=== PATIENT | male | born 1970 | race American Indian/Alaskan Native ===

== ENCOUNTER 2016-06-28 01:13 | Inpatient (IN) | payer MEDICARE ==
[2016-06-28 01:30] LABS: Basophils % (Auto) 0.4 % (0.0-1.8); Eosinophils % (Auto) 2.1 % (0.0-4.3); Hematocrit 39.1 % (35.5-45.6); Mean Corpuscular HGB Conc 33 % (32-34); Mean Corpuscular Hemoglobin 28 pg (28-32); Mean Corpuscular Volume 85 fl (84-94); Platelet Count 190 K/mm3 (140-440); Red Blood Count 4.59 M/mm3 (3.65-5.03); Red Cell Distribution Width 13.9 % (13.2-15.2); White Blood Count 8.6 K/mm3 (4.5-11.0)
--- NOTE | 2016-06-28 01:31 | Emergency Department Report ---
ED Neuro Deficit HPI - General Chief Complaint: Neuro Symptoms/Deficit Stated Complaint: CVA Time Seen by Provider: 06/28/16 01:23 Source: patient, family, EMS Mode of arrival: Stretcher Limitations: No Limitations - History of Present Illness Initial Comments: EMS called to the scene at 00 26 for patient concerning for possible CVA. There was a woman insisted on EMS coming. Patient states he was just hanging out with his daughter. She noted that he suddenly had leftward gaze and appeared to have some weakness on his left arm and leg. This also report that the patient appears to be weak on his left arm and leg. Patient does endorse history of prior TIAs. States today was a normal day. He denies any trauma. He denies any recent surgery. He denies being on any blood thinners. Onset/Timin -: Sudden, hour(s) Location: left arm, left leg, ataxia Presenting Symptoms: Present: Weak/Paralyzed One Side History of same: Yes Place: home Severity: moderate Quality: weak Improves With: none Worsens With: none Context: sudden onset Associated Symptoms: denies: confusion, chest pain, headaches, nausea/vomiting, vertigo Treatments Prior to Arrival: oxygen - Related Data Home Medications: Home Medications Medication Instructions Recorded Confirmed Last Taken Atorvastatin (Nf) [Lipitor (Nf)] 20 mg PO QDAY 08/22/14 08/22/14 08/22/14 09:00 Lisinopril [Zestril] 20 mg PO BID 08/22/14 08/22/14 08/22/14 09:00 Potassium Citrate [Potassium 10 meq PO DAILY 08/22/14 08/22/14 08/22/14 09:00 Citrate ER] glipiZIDE [Glucotrol] 10 mg PO BID 08/22/14 08/22/14 08/22/14 09:00 levETIRAcetam [levETIRAcetam ER] 500 mg PO BID 08/22/14 08/22/14 08/22/14 09:00 Previous Rx's Medication Instructions Recorded Last Taken Type Losartan [Cozaar] 100 mg PO QDAY #30 tablet 08/27/14 Unknown Rx Metoprolol [Lopressor TAB] 100 mg PO BID #60 tablet 08/27/14 Unknown Rx Simvastatin [Zocor TAB] 20 mg PO QHS #30 tablet 08/27/14 Unknown Rx Spironolactone 25 mg PO DAILY #30 tablet 08/27/14 Unknown Rx cloNIDine [Catapres] 0.2 mg PO BID PRN #60 tablet 08/27/14 Unknown Rx glipiZIDE [Glucotrol] 5 mg PO BIDDIAB #30 tablet 08/27/14 Unknown Rx hydrALAZINE [Apresoline TAB] 50 mg PO Q8HR #90 tablet 08/27/14 Unknown Rx levETIRAcetam [Keppra TAB] 1,500 mg PO BID #60 tablet 08/27/14 Unknown Rx Allergies/Adverse Reactions: Allergies Allergy/AdvReac Type Severity Reaction Status Date / Time No Known Allergies Allergy Verified 05/26/14 10:20 ED Review of Systems ROS: Stated complaint: CVA Other details as noted in HPI Constitutional: denies: chills, fever Eyes: denies: eye pain, eye discharge, vision change ENT: denies: ear pain, throat pain Respiratory: denies: cough, shortness of breath, wheezing Cardiovascular: denies: chest pain, palpitations Endocrine: no symptoms reported Gastrointestinal: denies: abdominal pain, nausea, diarrhea Genitourinary: denies: urgency, dysuria Musculoskeletal: denies: back pain, joint swelling, arthralgia Skin: denies: rash, lesions Neurological: weakness, abnormal gait. denies: headache, paresthesias Psychiatric: denies: anxiety, depression Hematological/Lymphatic: denies: easy bleeding, easy bruising ED Past Medical Hx - Past Medical History Hx Hypertension: Yes Hx CVA: Yes (old left side weakness.) Hx Congestive Heart Failure: No Hx Diabetes: Yes Hx Renal Disease: Yes Hx Seizures: Yes (Since Jun 2012) Hx Asthma: No Hx COPD: No - Social History Smoking Status: Never Smoker Substance Use Type: None - Medications Home Medications: Home Medications Medication Instructions Recorded Confirmed Last Taken Type Atorvastatin (Nf) [Lipitor (Nf)] 20 mg PO QDAY 08/22/14 08/22/14 08/22/14 09:00 History Lisinopril [Zestril] 20 mg PO BID 08/22/14 08/22/14 08/22/14 09:00 History Potassium Citrate [Potassium 10 meq PO DAILY 08/22/14 08/22/14 08/22/14 09:00 History Citrate ER] glipiZIDE [Glucotrol] 10 mg PO BID 08/22/14 08/22/14 08/22/14 09:00 History levETIRAcetam [levETIRAcetam ER] 500 mg PO BID 08/22/14 08/22/14 08/22/14 09:00 History Losartan [Cozaar] 100 mg PO QDAY #30 tablet 08/27/14 Unknown Rx Metoprolol [Lopressor TAB] 100 mg PO BID #60 tablet 08/27/14 Unknown Rx Simvastatin [Zocor TAB] 20 mg PO QHS #30 tablet 08/27/14 Unknown Rx Spironolactone 25 mg PO DAILY #30 tablet 08/27/14 Unknown Rx cloNIDine [Catapres] 0.2 mg PO BID PRN #60 tablet 08/27/14 Unknown Rx glipiZIDE [Glucotrol] 5 mg PO BIDDIAB #30 tablet 08/27/14 Unknown Rx hydrALAZINE [Apresoline TAB] 50 mg PO Q8HR #90 tablet 08/27/14 Unknown Rx levETIRAcetam [Keppra TAB] 1,500 mg PO BID #60 tablet 08/27/14 Unknown Rx ED Neuro Physical Exam - General Limitations: Other (confused) General appearance: alert, in distress Suspected Stroke: Yes - Head Head exam: Present: atraumatic, normocephalic - Eye Eye exam: Present: normal appearance, PERRL, EOMI - ENT ENT exam: Present: normal orophraynx, mucous membranes moist - Neck Neck exam: Present: normal inspection, other (Unable to turn to the R). Absent : meningismus, lymphadenopathy - Respiratory Respiratory exam: Present: normal lung sounds bilaterally. Absent: respiratory distress, wheezes - Cardiovascular Cardiovascular Exam: Present: regular rate, normal rhythm. Absent: systolic murmur, diastolic murmur, rubs, gallop - GI/Abdominal GI/Abdominal exam: Present: soft, normal bowel sounds. Absent: distended, tenderness - Rectal Rectal exam: Present: deferred - Extremities Exam Extremities exam: Present: other (no sensation or movement in L leg or arm. Nml sensation and strength in R) - Back Exam Back exam: Present: normal inspection. Absent: muscle spasm, paraspinal tenderness, vertebral tenderness - Neurological Exam Neurological exam: Present: alert, other (disoriented X2. ) - NIHSS Assessment Interval: Baseline 1a. Level of Consciousness: alert 1b. LOC Questions: answers no questions correctly 1c. LOC Commands: performs 1 task correctly 2. Best Gaze: partial gaze palsy 3. Visual: no visual loss 4. Facial Palsy: normal symmetrical movement 5b. Motor Arm Right: no drift 5a. Motor Arm Left: no movement 6a. Motor Leg Left: no drift 6b. Motor Leg Right: no movement 7. Limb Ataxia: present 2 limbs 8. Sensory: severe/total sensory loss 9. Best Language: mild/moderate aphasia 10. Dysarthria: normal 11. Extinction/Inattention: visual/tactile inattention Total Score: 18 Stroke Severity: Moderate to Severe Stroke - Psychiatric Psychiatric exam: Present: flat affect, other (blunted in responses. Very short. ) - Skin Skin exam: Present: warm, dry, intact, normal color. Absent: rash ED Course Vital Signs 06/28/16 06/28/16 06/28/16 01:35 01:37 01:41 Pulse Rate 117 H 110 H 115 H Respiratory 21 19 21 Rate Blood Pressure 240/133 240/133 Blood Pressure [Right] O2 Sat by Pulse 83 L 88 100 Oximetry 06/28/16 06/28/16 06/28/16 01:44 01:45 01:51 Pulse Rate 129 H 129 H Respiratory 22 26 H Rate Blood Pressure 240/133 263/152 Blood Pressure 240/133 [Right] O2 Sat by Pulse 96 98 Oximetry 06/28/16 06/28/16 06/28/16 01:55 02:00 02:05 Pulse Rate 138 H 133 H 111 H Respiratory 25 H 18 24 Rate Blood Pressure 269/141 221/121 187/114 Blood Pressure [Right] O2 Sat by Pulse 97 96 95 Oximetry 06/28/16 06/28/16 06/28/16 02:09 02:11 02:15 Pulse Rate 103 H 103 H 105 H Respiratory 17 20 19 Rate Blood Pressure 187/114 175/105 183/108 Blood Pressure [Right] O2 Sat by Pulse 96 94 94 Oximetry 06/28/16 06/28/16 06/28/16 02:16 02:30 02:33 Pulse Rate 110 H 116 H 104 H Respiratory 21 20 16 Rate Blood Pressure 183/108 189/119 172/126 Blood Pressure [Right] O2 Sat by Pulse 94 94 95 Oximetry 06/28/16 06/28/16 06/28/16 02:45 03:00 03:15 Pulse Rate 102 H 108 H 105 H Respiratory 17 20 22 Rate Blood Pressure 174/98 183/109 182/104 Blood Pressure [Right] O2 Sat by Pulse 97 95 95 Oximetry 06/28/16 03:30 Pulse Rate 102 H Respiratory 20 Rate Blood Pressure 163/101 Blood Pressure [Right] O2 Sat by Pulse 95 Oximetry - Reevaluation(s) Reevaluation #1: 06/28/16 02:01 ECG at 01 36 with sinus tachycardia at 108 bpm left axis. Does have normal LA and QRS. Nonspecific ST-T wave abnormalities are noted. Reevaluation #2: 06/28/16 02:02 Patient's blood pressure put him out of the window for TPA at this moment. In further conversation with the daughter, she last saw him well at 2230. At that point she heard him again about 12:15 when he got up to use the bathroom. She noted that he was having some difficulty being steady on his feet and misstook being in the family room and Peeing on the floor the family rather than peeing in the bathroom. BP currently 250/140. Patient started on Cardene. This does not seem to be touching the blood pressure. We will trial on nitroprusside. Reevaluation #3: 06/28/16 05:12 I did speak with Dr. Arroyo regarding this patient. Initially the plan was to give TPA. However when Dr. Arroyo saw the patient on telemetry radiology who felt it was unusual that the patient had a deviation of his gaze on the same side as the deficit. Patient was also noted to have some occasional twitching in his face as well as his left leg. He instructed us to give Ativan and this had a dramatic results. The patient suddenly was much more appropriate and had resolution of his deficits on the left side. This confirmed Dr. Arroyo suspicion that the patient was in status epilepticus. I abandoned any thoughts of TPA at this point unfortunately it had already had been mixed. With Dr. Arroyo's suggestion, the patient was loaded on fosphenytoin. I also gave Keppra. He is quite sleepy after this now. He is however arousable and does answer questions and is moving all extremities. His labs are noted. I did speak with Dr. Vergara regarding admission of this patient here. She was comfortable with him staying here. He will likely need EEG. As outpatient he will need neurology follow-up as well. His last seizure was one year ago. I suspect he has a complex partial seizure disorder due to his prior CVAs. There was no report of trauma tonight. I'm not able to identify any specific stressors that would've caused problems tonight either. In regards to his blood pressure, I ultimately held off on the nitroprusside as he began to respond to the Cardene drip. Also given labetalol 20 mg IV. Blood pressures still has a diastolic that is somewhat elevated 110. But his systolic is right around 170. 06/28/16 05:16 - Lab Data Result diagrams: 06/28/16 01:20 06/28/16 01:20 Lab Results 06/28/16 06/28/16 06/28/16 Range/Units 01:16 01:20 01:20 WBC 8.6 (4.5-11.0) K/mm3 RBC 4.59 (3.65-5.03) M/mm3 Hgb 13.0 (11.8-15.2) gm/dl Hct 39.1 (35.5-45.6) % MCV 85 (84-94) fl MCH 28 (28-32) pg MCHC 33 (32-34) % RDW 13.9 (13.2-15.2) % Plt Count 190 (140-440) K/mm3 Lymph % (Auto) 29.4 (13.4-35.0) % [place] % (Auto) 5.1 (0.0-7.3) % Eos % (Auto) 2.1 (0.0-4.3) % Baso % (Auto) 0.4 (0.0-1.8) % Lymph # 2.5 (1.2-5.4) K/mm3 [place] # 0.4 (0.0-0.8) K/mm3 Eos # 0.2 (0.0-0.4) K/mm3 Baso # 0.0 (0.0-0.1) K/mm3 Seg Neutrophils % 63.0 (40.0-70.0) % Seg Neutrophils # 5.4 (1.8-7.7) K/mm3 PT 12.7 (12.2-14.9) Sec. INR 0.96 (0.87-1.13) APTT 30.8 (24.2-36.6) Sec. Thrombin Time 16.0 (15.1-19.6) Sec. Sodium (137-145) mmol/L Potassium (3.6-5.0) mmol/L Chloride (98-107) mmol/L Carbon Dioxide (22-30) mmol/L Anion Gap mmol/L BUN (9-20) mg/dL Creatinine (0.8-1.5) mg/dL Estimated GFR ml/min BUN/Creatinine Ratio % Glucose (75-100) mg/dL POC Glucose 144 H (70-105) Calcium (8.4-10.2) mg/dL Troponin T (0.00-0.029) ng/mL 06/28/16 Range/Units 01:20 WBC (4.5-11.0) K/mm3 RBC (3.65-5.03) M/mm3 Hgb (11.8-15.2) gm/dl Hct (35.5-45.6) % MCV (84-94) fl MCH (28-32) pg MCHC (32-34) % RDW (13.2-15.2) % Plt Count (140-440) K/mm3 Lymph % (Auto) (13.4-35.0) % [place] % (Auto) (0.0-7.3) % Eos % (Auto) (0.0-4.3) % Baso % (Auto) (0.0-1.8) % Lymph # (1.2-5.4) K/mm3 [place] # (0.0-0.8) K/mm3 Eos # (0.0-0.4) K/mm3 Baso # (0.0-0.1) K/mm3 Seg Neutrophils % (40.0-70.0) % Seg Neutrophils # (1.8-7.7) K/mm3 PT (12.2-14.9) Sec. INR (0.87-1.13) APTT (24.2-36.6) Sec. Thrombin Time (15.1-19.6) Sec. Sodium 138 (137-145) mmol/L Potassium 3.5 L (3.6-5.0) mmol/L Chloride 96.9 L (98-107) mmol/L Carbon Dioxide 31 H (22-30) mmol/L Anion Gap 14 mmol/L BUN 13 (9-20) mg/dL Creatinine 0.8 (0.8-1.5) mg/dL Estimated GFR > 60 ml/min BUN/Creatinine Ratio 16.25 % Glucose 152 H (75-100) mg/dL POC Glucose (70-105) Calcium 9.1 (8.4-10.2) mg/dL Troponin T < 0.010 (0.00-0.029) ng/mL - Radiology Data Radiology results: report reviewed, image reviewed Per radiologist no acute pathology. Critical Care Time: Yes Critical care time in (mins) excluding proc time.: 50 Critical care attestation.: If time is entered above; I have spent that time in minutes in the direct care of this critically ill patient, excluding procedure time. ED Disposition Clinical Impression: Malignant hypertension Seizure disorder, complex partial Qualifiers: Epilepsy type: partial symptomatic Intractability: not intractable Status epilepticus: with status epilepticus Qualified Code(s): G40.201 - Localization- related (focal) (partial) symptomatic epilepsy and epileptic syndromes with complex partial seizures, not intractable, with status epilepticus Disposition: OP ADMITTED IP TO THIS HOSP Is pt being admited?: Yes Does the pt Need Aspirin: No Condition: Stable Instructions: Hypertension (ED) Referrals: PRIMARY CARE, [Primary Care Provider] - 3-5 Days Time of Disposition: 04:17 - Assessment Assessment Interval: Baseline - Level of Consciousness 1a. Level of Consciousness: alert - LOC Questions 1b. LOC Questions: answers no questions correctly - LOC Command 1c. LOC Commands: performs 1 task correctly - Best Gaze 2. Best Gaze: forced deviation - Visual 3. Visual: partial hemianopia - Facial Palsy 4. Facial Palsy: normal symmetrical movement - Motor Arm 5b. Motor Arm Right: no drift 5a. Motor Arm Left: no movement - Motor Leg 6a. Motor Leg Left: no drift 6b. Motor Leg Right: no movement - Limb Ataxia 7. Limb Ataxia: present 2 limbs - Sensory 8. Sensory: severe/total sensory loss - Best Language 9. Best Language: mild/moderate aphasia - Dysarthria 10. Dysarthria: normal - Extinction and Inattention 11. Extinction/Inattention: no abnormality - Scoring Total Score: 19 Stroke Severity: Moderate to Severe Stroke
[2016-06-28 01:35] LABS: INR 0.96 (0.87-1.13)
[2016-06-28 01:36] LABS: Partial Thromboplastin Time 30.8 Sec. (24.2-36.6)
[2016-06-28] MEDS: CARDENE DRIP 40 MG/200 ML 40 MG/200 ML BAG IV SCH ×2 (01:37→10:02)
--- NOTE | 2016-06-28 01:42 | Cat Scan Report ---
FINAL REPORT PROCEDURE: CT HEAD/BRAIN WO CON TECHNIQUE: Computerized tomography of the head was performed without contrast material. HISTORY: neuro deficits \T\lt; 6hrs or sx present upon awakening COMPARISON: 08/22/2014 FINDINGS: The osseous cranium appears intact. Minimal opacification of the ethmoid and posterior left maxillary sinuses is noted. The mastoid air cells are clear. There is no evident acute intracranial hemorrhage or mass effect. No masses identified. No evidence of an acute infarction. Encephalomalacia is seen in the right parietal lobe with old infarction involving right posterior frontal, upper temporal and lower parietal lobes. There remains periventricular small vessel ischemic changes as well as schema changes in the caudate nuclei and bilateral basal ganglia. Mild atrophy is noted. No hydrocephalus is seen. The basilar cisterns are maintained. The cerebellum has a normal appearance. Moderate atherosclerosis of the carotid arteries is noted. IMPRESSION: There is no evidence of an acute intracranial process. The findings are essentially unchanged. Evidence of encephalomalacia and old infarction involving the right posterior frontal, temporal and parietal lobes is noted. There remains periventricular deep white matter changes will is old the lacunar infarctions and small vessel ischemic changes within the caudate nuclei in the bilateral basal ganglia.
[2016-06-28 01:47] LABS: Anion Gap 14 mmol/L; BUN/Creatinine Ratio 16.25; Blood Urea Nitrogen 13 mg/dL (9-20); Calcium 9.1 mg/dL (8.4-10.2); Carbon Dioxide 31 mmol/L (22-30); Chloride 96.9 mmol/L (98-107); Glucose 152 mg/dL (75-100); Potassium 3.5 mmol/L (3.6-5.0); Sodium 138 mmol/L (137-145)
[2016-06-28] MEDS ORDERED: CARDENE DRIP 40 MG/200 ML 200 ML IV SCH (01:47)
[2016-06-28] MEDS ORDERED: NIPRIDE 50 MG in D5W 248 ML IV SCH (02:00)
[2016-06-28] MEDS ORDERED: NACL 0.9% 500 ML 500 ML ONE (02:05)
[2016-06-28] MEDS ORDERED: NORMODYNE IV ONE ×2 (02:05→02:06)
[2016-06-28] MEDS ORDERED: ATIVAN ONE (02:29)
[2016-06-28] MEDS ORDERED: ATIVAN IV ONE ×2 (02:35→02:37)
[2016-06-28] MEDS ORDERED: KEPPRA 1,000 MG/NS 0.75% 100ML 1,000 MG/100 ML BAG IV ONE (02:37)
[2016-06-28] MEDS ORDERED: CEREBYX IV ONE ×2 (02:37→03:00)
[2016-06-28] MEDS ORDERED: ACTIVASE ONE (02:47)
[2016-06-28] MEDS ORDERED: [UNRECOGNIZED DRUG - OTHER] IV ONE (03:00)
[2016-06-28] MEDS ORDERED: NACL IV ONE (03:00)
--- NOTE | 2016-06-28 04:40 | Admit Criteria Form ---
Admission Criteria Documentation: SEIZURE Clinical Indications for Admission to Inpatient Care (Place 'X' for any and all applicable criteria): Admission is indicated for seizure and ANY ONE of the following(1)(2)(3)(4)(5): [X ]I. Inpatient admission required rather than observation care (Also use Seizure: Observation Care Criteria as appropriate) because of ANY ONE of the following: [ ]a) Altered mental status that is severe or persistent [ ]b) New focal neurologic deficit that is severe or persistent [ ]c) Metabolic disorder (eg, hypoglycemia, hyponatremia) that is severe or persistent [ ]d) Recurrent seizure [ ]e) Outpatient antiseizure regimen cannot be established (eg , patient cannot tolerate medication, initiation requires inpatient care) [ ]f) Need for ongoing intravenous infusion of antiseizure medication [ ]g) Cardiac arrhythmias of immediate concern [ ]h) Cerebral bleeding, hydrocephalus, or vasospasm monitoring (14) [ ]i) Increased intracranial pressure or cerebral edema monitoring (15) [X ]j) Other treatment or monitoring requiring inpatient admission [X ]II. Status epilepticus [A] or repetitive seizures not controlled with emergent treatment (6)(8) [ ]III. Brain disorder (eg, tumor, edema, and hydrocephalus) that requiring monitoring or intervention available only at inpatient level of care. [ ]IV. Brain insult (eg, severe trauma, stroke, drug toxicity, or withdrawal) that requires monitoring or intervention available only at inpatient level of care (10)(11) Extended stay beyond goal length of stay may be needed for (22) [ ]a) Complications of status epilepticus [ ]b) Refractory status epilepticus [ ]c) Etiology-specific therapy for conditions such as [employer]ED[employer] OPER[employer] infection, head injury,eclampsia, severe metabolic abnormalities, and brain tumor [ ]d) Residual neurologic damage, [ ]e) Initiation of significant change to anticonvulsant treatment [ ]f) Older patients (65 years or older) [ ]g) Patient requiring intubation (eg, to protect airway) The original [facility] content created by [facility] [employer] has been revised. The portions of the content which have been revised are identified through the use of italic text or in bold, and [facility] [employer] has neither reviewed nor approved the modified material. All other unmodified content is copyright [facility] [employer]. Please see references footnoted in the original [facility] edition 2016 Admission Criteria Met: Yes
[2016-06-28] MEDS ORDERED: ATIVAN IV PRN (05:07)
--- NOTE | 2016-06-28 05:14 | History and Physical Report ---
History of Present Illness Date of examination: 06/28/16 History of present illness: 46-year-old man with a history of seizure was brought to the emergency room for evaluation of stroke. He was noted to have left side weakness and left gaze preference. Patient was evaluated by neurology who decided to give the patient IV Ativan for possible status epilepticus, patient's neurological improved dramatically for the emergency room physician, however he is now sedated. Review of system is now unobtainable . PAST SURGICAL HISTORY: Unknown SOCIAL HISTORY: Unknown FAMILY HISTORY: Unknown Medications and Allergies Allergies Allergy/AdvReac Type Severity Reaction Status Date / Time No Known Allergies Allergy Verified 05/26/14 10:20 Home Medications Medication Instructions Recorded Confirmed Last Taken Type Atorvastatin (Nf) [Lipitor (Nf)] 20 mg PO QDAY 08/22/14 08/22/14 08/22/14 09:00 History Lisinopril [Zestril] 20 mg PO BID 08/22/14 08/22/14 08/22/14 09:00 History Potassium Citrate [Potassium 10 meq PO DAILY 08/22/14 08/22/14 08/22/14 09:00 History Citrate ER] glipiZIDE [Glucotrol] 10 mg PO BID 08/22/14 08/22/14 08/22/14 09:00 History levETIRAcetam [levETIRAcetam ER] 500 mg PO BID 08/22/14 08/22/14 08/22/14 09:00 History Losartan [Cozaar] 100 mg PO QDAY #30 tablet 08/27/14 Unknown Rx Metoprolol [Lopressor TAB] 100 mg PO BID #60 tablet 08/27/14 Unknown Rx Simvastatin [Zocor TAB] 20 mg PO QHS #30 tablet 08/27/14 Unknown Rx Spironolactone 25 mg PO DAILY #30 tablet 08/27/14 Unknown Rx cloNIDine [Catapres] 0.2 mg PO BID PRN #60 tablet 08/27/14 Unknown Rx glipiZIDE [Glucotrol] 5 mg PO BIDDIAB #30 tablet 08/27/14 Unknown Rx hydrALAZINE [Apresoline TAB] 50 mg PO Q8HR #90 tablet 08/27/14 Unknown Rx levETIRAcetam [Keppra TAB] 1,500 mg PO BID #60 tablet 08/27/14 Unknown Rx Active Meds: Active Medications Nicardipine/Sodium Chloride (Cardene Drip 40 Mg/200 Ml) 40 mg in 200 mls @ 25 mls/hr IV TITR KARLY; 5 MG/HR PRN Reason: Protocol Stop: 06/29/16 09:49 Last Titration: 06/28/16 02:18 Dose: 15 mg/hr, 75 mls/hr Lorazepam (Ativan) 2 mg IV Q4H PRN PRN Reason: Seizures Exam - Physical Exam Narrative exam: Gen. appearance: Patient lying in bed, no apparent distress HEENT: Normocephalic, atraumatic, pupils equally round and reactive to light, unable to do extraocular movement, and no sclericterus,. No JVD or thyromegaly or nodule,neck supple, no carotid bruit ,mucous membranes moist, unable to examine oral cavity Heart: S1, S2, regular rate and rhythm Lungs: Clear to auscultation bilaterally, breathing comfortable Abdomen: Positive bowel sounds, soft, nondistended, no organomegaly Extremity: No edema, cyanosis, clubbing Skin: No rash, nodules, warm, dry Neuro: Sedated - Constitutional Vitals: Temp Pulse Resp BP Pulse Ox 102 H 20 163/101 95 06/28/16 03:30 06/28/16 03:30 06/28/16 03:30 06/28/16 03:30 Results - Labs CBC & Chem 7: 06/28/16 01:20 06/28/16 01:20 Labs: Abnormal lab results 06/28/16 06/28/16 Range/Units 01:16 01:20 Potassium 3.5 L (3.6-5.0) mmol/L Chloride 96.9 L (98-107) mmol/L Carbon Dioxide 31 H (22-30) mmol/L Glucose 152 H (75-100) mg/dL POC Glucose 144 H (70-105) - Imaging and Cardiology EKG: image reviewed CT Scan - head: report reviewed Assessment and Plan Status epilepticus Admits medicine IV Ativan as needed for seizure activity Status post loading dose of DilantiCherelle amaro Consult neurology, start DVT prophylaxis
--- NOTE | 2016-06-28 09:27 | Event Note ---
Date: 06/28/16 Patient with hypertensive emergency and breakthrough seizures. He feels better. No seizures currently. He was seen and examined. Keppra dose increased to 2000 mg by mouth twice daily.
--- NOTE | 2016-06-28 10:37 | Consultation ---
History of Present Illness Consult date: 06/28/16 Requesting physician: ALEXIS MONTIEL Reason for consult: other (Altered Mental Status; Seizures) History of present illness: PULMONARY / CCM CONSULT NOTE (Full dictation # [id number]) Please see dictated notes for full details Medications and Allergies Allergies Allergy/AdvReac Type Severity Reaction Status Date / Time No Known Allergies Allergy Verified 05/26/14 10:20 Home Medications Medication Instructions Recorded Confirmed Last Taken Type Atorvastatin (Nf) [Lipitor (Nf)] 20 mg PO QDAY 08/22/14 08/22/14 08/22/14 09:00 History Lisinopril [Zestril] 20 mg PO BID 08/22/14 08/22/14 08/22/14 09:00 History Potassium Citrate [Potassium 10 meq PO DAILY 08/22/14 08/22/14 08/22/14 09:00 History Citrate ER] glipiZIDE [Glucotrol] 10 mg PO BID 08/22/14 08/22/14 08/22/14 09:00 History levETIRAcetam [levETIRAcetam ER] 500 mg PO BID 08/22/14 08/22/14 08/22/14 09:00 History Losartan [Cozaar] 100 mg PO QDAY #30 tablet 08/27/14 Unknown Rx Metoprolol [Lopressor TAB] 100 mg PO BID #60 tablet 08/27/14 Unknown Rx Simvastatin [Zocor TAB] 20 mg PO QHS #30 tablet 08/27/14 Unknown Rx Spironolactone 25 mg PO DAILY #30 tablet 08/27/14 Unknown Rx cloNIDine [Catapres] 0.2 mg PO BID PRN #60 tablet 08/27/14 Unknown Rx glipiZIDE [Glucotrol] 5 mg PO BIDDIAB #30 tablet 08/27/14 Unknown Rx hydrALAZINE [Apresoline TAB] 50 mg PO Q8HR #90 tablet 08/27/14 Unknown Rx levETIRAcetam [Keppra TAB] 1,500 mg PO BID #60 tablet 08/27/14 Unknown Rx Active Meds: Active Medications Nicardipine/Sodium Chloride (Cardene Drip 40 Mg/200 Ml) 40 mg in 200 mls @ 25 mls/hr IV TITR KARLY; 5 MG/HR PRN Reason: Protocol Last Admin: 06/28/16 10:02 Dose: 5 mg/hr, 25 mls/hr Lorazepam (Ativan) 2 mg IV Q4H PRN PRN Reason: Seizures Physical Examination Vital signs: Vital Signs Pulse Resp Pulse Ox 117 H 21 83 L 06/28/16 01:35 06/28/16 01:35 06/28/16 01:35 Results - Laboratory Findings CBC and BMP: 06/28/16 01:20 06/28/16 01:20 PT/INR, D-dimer PT 12.7 Sec. (12.2-14.9) 06/28/16 01:20 INR 0.96 (0.87-1.13) 06/28/16 01:20
--- NOTE | 2016-06-28 11:00 | Consultation ---
History of Present Illness Consult date: 06/28/16 Requesting physician: ALEXIS MONTIEL Reason for Consult: seizure Chief complaint: seizure History of present illness: 46 YO M Hx R MCA stroke in Jun 2015 w/ residual L sided weakness not requiring assistance and Sz disorder on LEV 1.5g BID and complaint who p/w overnight w/ AMS. Pt has gaze deviation to the L and L sided weakness w/ twitching movements of the L side. His last sz was 4-5 months ago. Duration of sx was at least 10- 20 mins. Sx resolved w/ IV Ativan. There were no aggravating factors. Severity was such to cause LOC. Past History Past Medical History: diabetes, hypertension, hyperlipidemia, seizures, stroke Past Surgical History: No surgical history Social history: no significant social history, single, lives with family Family history: no significant family history Medications and Allergies Allergies Allergy/AdvReac Type Severity Reaction Status Date / Time No Known Allergies Allergy Verified 05/26/14 10:20 Home Medications Medication Instructions Recorded Confirmed Last Taken Type Atorvastatin (Nf) [Lipitor (Nf)] 20 mg PO QDAY 08/22/14 08/22/14 08/22/14 09:00 History Lisinopril [Zestril] 20 mg PO BID 08/22/14 08/22/14 08/22/14 09:00 History Potassium Citrate [Potassium 10 meq PO DAILY 08/22/14 08/22/14 08/22/14 09:00 History Citrate ER] glipiZIDE [Glucotrol] 10 mg PO BID 08/22/14 08/22/14 08/22/14 09:00 History levETIRAcetam [levETIRAcetam ER] 500 mg PO BID 08/22/14 08/22/14 08/22/14 09:00 History Losartan [Cozaar] 100 mg PO QDAY #30 tablet 08/27/14 Unknown Rx Metoprolol [Lopressor TAB] 100 mg PO BID #60 tablet 08/27/14 Unknown Rx Simvastatin [Zocor TAB] 20 mg PO QHS #30 tablet 08/27/14 Unknown Rx Spironolactone 25 mg PO DAILY #30 tablet 08/27/14 Unknown Rx cloNIDine [Catapres] 0.2 mg PO BID PRN #60 tablet 08/27/14 Unknown Rx glipiZIDE [Glucotrol] 5 mg PO BIDDIAB #30 tablet 08/27/14 Unknown Rx hydrALAZINE [Apresoline TAB] 50 mg PO Q8HR #90 tablet 08/27/14 Unknown Rx levETIRAcetam [Keppra TAB] 1,500 mg PO BID #60 tablet 08/27/14 Unknown Rx Active Meds: Active Medications Nicardipine/Sodium Chloride (Cardene Drip 40 Mg/200 Ml) 40 mg in 200 mls @ 25 mls/hr IV TITR KARLY; 5 MG/HR PRN Reason: Protocol Last Admin: 06/28/16 10:02 Dose: 5 mg/hr, 25 mls/hr Levetiracetam (Keppra) 2,000 mg PO BID KARLY Lorazepam (Ativan) 2 mg IV Q4H PRN PRN Reason: Seizures Review of Systems All systems: negative Cardiovascular: high blood pressure Neurological: weakness, seizures, convulsions, gait dysfunction, motor disturbance Physical Examination - Vital Signs Vital Signs: Vital Signs Pulse Resp Pulse Ox 117 H 21 83 L 06/28/16 01:35 06/28/16 01:35 06/28/16 01:35 - Constitutional General appearance: comfortable, chronically ill, older than stated age - EENT EENT: Present: ATNC, PERRL, mucous membranes dry, hearing intact, vision intact - Respiratory Respiratory: Present: chest non-tender, normal breath sounds, no respiratory distress - Cardiovascular Cardiovascular: Present: regular rate Extremities: Present: no peripheral edema bilatateraly, no clubbing, cyanosis, no inflammation, no ischemia or petechiae - Gastrointestinal Gastrointestinal: Present: normoactive bowel sounds, non-distended - Integumentary Integumentary: Present: normal - Neurologic Cranial nerve examination: PERRL, EOMI, VFF, V1/V2/V3 grossly intact, tongue midline, intact, intact shoulder shrug, intact cough reflex, intact corneal reflex, facial droop, normal palatal elevation Speech examination: intact Sensorimotor examination: pronator drift, hemiparesis Motor examination - right side: 5/5: biceps, triceps, wrist flexion, wrist extension, tourist adviser, hip flexors, knee extensors, dorsiflexion, toe extension (EHL) , plantarflexion Motor examination - left side: 5/5: biceps (L side 5-/5 in UMN pattern throughout), triceps, wrist flexion, wrist extension, tourist adviser, hip flexors, knee extensors, dorsiflexion, toe extension (EHL), plantarflexion Detailed sensory examination: intact, light touch, extinction (on L), stereognosia (on L) Reflex and gait examination: intact Reflexes: 0: ankle, 1+: knee, 2+: bicep, tricep - Musculoskeletal Musculoskeletal: Present: no fluid collection, no pain, normal range of motion - Psychiatric Psychiatric: Present: mood/affect appropriate, cooperative Results - Laboratory Findings CBC and BMP: 06/28/16 01:20 06/28/16 01:20 - Diagnostic Findings Additional findings: CTH R fronto/parieto/temporal encephalomalacia-chronic R MCA suspected Assessment and Plan 46 YO M Hx R MCA stroke in Jun 2015 w/ residual L sided weakness not requiring assistance and Sz disorder compliant w/ LEV 1.5g BID who p/w breakthrough seizure in setting of markedly elevated BP-HTN emergency. Sx have resolved w/ IV BZD and he is resolving to baseline. CTH chronic R MCA infarct. Plan and Recommendation: 1. Telemetry bed w/ Q4 hour neuro checks & Sz precautions 2. Labs: Serum/Urine Tox, UA/UCx, Electrolytes especially Na, Ca, Mg, and Glucose, TSH, 3. AED therapy: Increase home Keppra to 2000mg BID 4. Avoid meds that can lower sz threshold e.g. Tramadol, fluroquinolones, carbapenems 5. Pt advised of [place] driving regulations: report date of presumed Seizure/ unexplained loss of consciousness/awareness spell to [facility], refrain from operating a motor vehicle for 6 months after this date, and avoid unsupervised activity particularly around water or heights 6. Neurologically clear for discharge once resolved fully to baseline w/o recurrent seizure for 24 hrs. 7. Follow up as outpt with Neurology. 8. We can revisit as needed.
[2016-06-28] MEDS: LOPRESSOR PO SCH ×2 (12:40→22:36)
[2016-06-28] MEDS: COZAAR PO SCH (12:40)
[2016-06-28] MEDS: KEPPRA PO SCH ×2 (12:43→22:36)
[2016-06-28] MEDS ORDERED: K-DUR PO ONE (13:00)
[2016-06-28] MEDS: APRESOLINE PO SCH ×2 (14:56→22:35)
[2016-06-28] MEDS: LOVENOX SUB-Q SCH (14:58)
[2016-06-28] MEDS ORDERED: ZOCOR PO SCH (22:00)
--- NOTE | 2016-06-29 00:45 | Consultation ---
CONSULTING PHYSICIAN: Katrina Vergara MD REASON FOR CONSULTATION: ICU admission request for seizures. CHIEF COMPLAINT AND HISTORY OF PRESENT ILLNESS: The patient is a 46-year-old -Citizen Of [place] male who does have a past medical history of seizure disorders who stated that he was at home when family noticed that he was looking different. He had left-sided weakness, left gaze preference. He was initially brought into the Emergency Room as a stroke protocol. However, upon evaluation by the neurologist, it was felt that lateral deficits were not corresponded with the stroke. He received some IV Ativan for possible status epilepticus and the patient's neurological status dramatically improved. He was continued on his antiepileptic drugs and admitted to the Intensive Care Unit, mostly because he was also significantly hypertensive requiring a Cardene drip. When I stopped by to see him, he was feeling a little bit better. He was more coherent, but still had a little bit of a postictal looking face. He denied any chest pains at home. Denied any current chest pains. Denied nausea, vomiting, or overt aspiration. Denies any history of tobacco use of abuse whatsoever, stated that he was compliant with his medications as far as he knew. That really is as much of the history of presentation as I have. PAST MEDICAL HISTORY: Based on review of the record significant for diabetes, hypertension, hyperlipidemia, seizure disorder, and prior cerebrovascular accident. PAST SURGICAL HISTORY: Denied. MEDICATIONS: He was on at the time I stopped by to see him, according to the medication administration record included the following: Keppra 2 grams p.o. b.i.d., Ativan 2 mg IV q. 4 hours p.r.n. seizures, nicardipine drip at 5 mg per hour. ALLERGIES: No known drug allergies. DIET: Obese gentleman. Denies any acute weight loss or gain in the preceding few weeks to months. FAMILY AND SOCIAL HISTORY: Lives in the community. Today, denies alcohol, tobacco, or illicit drug use or abuse. REVIEW OF SYSTEMS: No loss of consciousness. According to him, he did have the altered mental status. No new onset focal weakness at this point. No gross hematochezia or melena. No gross hematuria or dysuria. No hematemesis. No hemoptysis. No palpitations. Complete review of systems was obtained. Pertinent positives and/or negatives as in body of history above, otherwise they are noncontributory. PHYSICAL EXAMINATION: VITAL SIGNS: At presentation in the Emergency Room, he was afebrile, temperature 98.8, pulse was 117, respiratory rate was 21, blood pressure was 240/133. Initial oxygen sats were 83%, inspired oxygen concentration was not recorded. HEAD, EYES, EARS, NOSE, AND THROAT: Pupils are equal, round, about 3-4 mm, reactive to light. Extraocular muscle movements appear intact. Grossly, there were no palpable lymph nodes in the supraclavicular or submandibular lymph node chains. LUNGS: Auscultation of both lung ryder unremarkable. Lungs are clear bilaterally. HEART: Heart sounds 1 and 2 are heard, regular rate and rhythm at time of my evaluation. ABDOMEN: Soft. Bowel sounds are positive. Nontender. EXTREMITIES: Without overt digital clubbing, cyanosis, or pedal edema. NEUROLOGIC: The exam was grossly nonfocal. LABORATORY DATA: From my review, white cell count 8600, hemoglobin 13.0, hematocrit 39.1, platelets 190. INR 0.96. Serum sodium 138, potassium 3.5, chloride 97, bicarbonate 31, BUN 13, creatinine 0.8, glucose 144. Cardiac enzymes, troponin within normal limits. CT scan of the brain was done, no acute intracranial processes, but findings were consistent with an old right posterior frontal, temporal, and parietal lobe infarct. ASSESSMENT AND PLAN: We have a middle-aged gentleman in with an acute, in my opinion hypertensive emergency, probably triggering his already low seizure threshold. From a respiratory standpoint, he is doing more better. He will be weaned off oxygenating as long as sats are greater than 94%. Aspiration precautions will be maintained. Bronchodilators will be on a p.r.n. basis. From a cardiovascular standpoint, Cardene drip will be weaned to keep systolic blood pressures less than or equal to about 160-170 mmHg. We will introduce his oral medications and otherwise follow him clinically. From a GI and nutritional standpoint, oral nutrition will be the feeding modality of choice. He is going to be placed on GI prophylaxis. Aspiration precautions will be maintained. From a renal standpoint, no major electrolyte abnormalities. Potassium will be corrected. Inputs and outputs will be monitored. Electrolytes will be corrected as necessary. From a LAMBSKIN TRIMMER standpoint, he is doing much better now. We will continue his anti-seizure medications. Neurology evaluation is ongoing. We will follow him clinically. From an infectious disease standpoint, no signs and symptoms of overwhelming sepsis. No acute indication for antibiotic therapy. He will be followed clinically. From a general and hospital healthcare maintenance standpoint, he is going to be on GI and DVT prophylaxis. Flu and pneumonia vaccination will be per protocol. Thank you very much for the consult, Dr. Vergara. We will follow along. We will make further recommendations as picture progresses/becomes clearer. At this point, we spent about 30-35 minutes of critical care time without overlap and excluding any procedural time that may be necessary. He is critically ill on life life-sustaining interventions including vasoactive medications I should say and at risk for further deterioration. JOB# [id number] DAY/TOMMY
[2016-06-29 05:21] LABS: Basophils % (Auto) 0.4 % (0.0-1.8); Eosinophils % (Auto) 1.8 % (0.0-4.3); Hematocrit 38.5 % (35.5-45.6); Hemoglobin 12.6 gm/dl (11.8-15.2); Mean Corpuscular HGB Conc 33 % (32-34); Mean Corpuscular Hemoglobin 28 pg (28-32); Mean Corpuscular Volume 86 fl (84-94); Platelet Count 185 K/mm3 (140-440); Red Blood Count 4.48 M/mm3 (3.65-5.03); Red Cell Distribution Width 14.3 % (13.2-15.2); White Blood Count 5.9 K/mm3 (4.5-11.0)
[2016-06-29 05:38] LABS: Anion Gap 14 mmol/L; Blood Urea Nitrogen 10 mg/dL (9-20); Calcium 8.5 mg/dL (8.4-10.2); Carbon Dioxide 30 mmol/L (22-30); Chloride 99.4 mmol/L (98-107); Glucose 97 mg/dL (75-100); Potassium 3.3 mmol/L (3.6-5.0); Sodium 140 mmol/L (137-145)
[2016-06-29] MEDS: APRESOLINE PO SCH (06:21)
[2016-06-29] MEDS ORDERED: K-DUR PO SCH (09:00)
[2016-06-29] MEDS: LOVENOX SUB-Q SCH (09:29)
[2016-06-29] MEDS: COZAAR PO SCH (09:29)
[2016-06-29] MEDS: KEPPRA PO SCH (09:30)
[2016-06-29] MEDS: LOPRESSOR PO SCH (09:30)
--- NOTE | 2016-06-29 10:54 | Query-Altered Level of Consc. ---
Dionna Scruggs Date:__06/29/2016 Mine Analyst/CDS:_Chaim Joe Phone#: Exercise your independent professional judgment when responding to this query. Questions asked do not imply a particular answer is desired or expected. We greatly appreciate your clarification on this issue. Clinical Documentation States: The patient is a [id number] Male who was admitted due to Altered Mental Status. "Altered Mental Status" (Dr. Winchester in Consult on 06/28/2016). "AMS" (Dr. Bragg in Consult on 06/28/2016). Please provide an appropriate diagnosis clarifying the Etiology and Acuity of this clinical scenario: [x] Metabolic Encephalopathy [ ] Toxic Encephalopathy [ ] Toxic - Metabolic Encephalopathy [ ] Septic Encephalopathy with Sepsis [ ] Septic Encephalopathy without Sepsis [ ] Acute Hepatic Encephalopathy [ ] Subacute Hepatic Encephalopathy [ ] Encephalopathy [ ] Other: [ ] Unable To Determine [ ]Comment/Explanation: Present on Admission: [ x] Yes (Y) [ ] Clinically undeterminable (W) [ ] No (N) Please also document response in your Progress Notes and/or Discharge Summary and indicate if the condition was present on admission. MTDD
--- NOTE | 2016-06-29 10:59 | Discharge Summary ---
Providers - Providers Date of Admission: 06/28/16 05:07 Date of discharge: 06/29/16 Attending physician: KIRK CIFUENTES 06/28/16 05:13 Consult to Physician [CONS] Routine Consulting Provider: BEL VELEZ Reason For Exam: SZ Place consult to:: dr velez Notified:: orlando henry Phone number called:: [phone] Was contact made?: No Time called:: 08:44 Primary care physician: NUCLEAR LOGGING ENGINEER Hospitalization Condition: Good Disposition: DISCHARGED TO HOME OR SELFCARE - Discharge Diagnoses (1) Breakthrough seizure Status: Acute Exam - Constitutional Vitals: Temp Pulse Resp BP Pulse Ox 97.6 F 80 11 L 105/77 99 06/29/16 07:35 06/29/16 10:00 06/29/16 10:00 06/29/16 10:00 06/29/16 10:00 Plan Activity: no driving until cleared by PCP Diet: low fat, low cholesterol, low salt Additional Instructions: 1.Follow up with PCP in 1 week. 2.Follow-up with Neurologist in 1 week. 3.No driving for 6 months and until cleared by Physician Follow up with: PRIMARY CARE, [Primary Care Provider] - 3-5 Days Prescriptions: levETIRAcetam [Keppra TAB] 2,000 mg PO BID #120 tablet
[2016-06-29 11:06] VITALS: BP 152/94
--- NOTE | 2016-06-29 11:29 | Progress Note ---
Assessment and Plan - Patient Problems (1) Hypertensive urgency, malignant Status: Acute Plan to address problem: - resolved - off cardene drip - oral antihypertensives resumed (2) Diabetes mellitus Status: Acute Qualifiers: Diabetes mellitus type: D Diabetes mellitus complication status: D Diabetes mellitus complication detail: D Diabetic retinopathy severity: D Proliferative retinopathy type: P Diabetes mellitus macular edema: D Diabetes mellitus technician terminal and repeater insulin use: D Laterality: L Chronic kidney disease stage: C Plan to address problem: - continue SSI (3) Seizure Onset Date: 08/23/14 Status: Acute Qualifiers: Convulsion type: C Plan to address problem: - resolved - continue keppra Subjective Date of service: 06/29/16 Principal diagnosis: Hypertensive Emergency; Seizures Interval history: Seen and examined at bedside; 24 hour events reviewed; nursing and respiratory care staff consulted; no adverse overnight events reported to me; resting peacefully in bed; denies acute chest pains or increased SOB; no seizures Objective Vital Signs - 12hr 06/29/16 06/29/16 06/29/16 00:00 00:01 01:00 Temperature 98.9 F Pulse Rate 70 68 Pulse Rate [ From Monitor] Respiratory 18 15 13 Rate Blood Pressure 148/83 141/89 O2 Sat by Pulse 98 99 97 Oximetry 06/29/16 06/29/16 06/29/16 02:00 03:00 04:00 Temperature 99.1 F Pulse Rate 64 71 Pulse Rate [ 81 From Monitor] Respiratory 10 L 11 L 18 Rate Blood Pressure 153/91 154/96 O2 Sat by Pulse 95 100 97 Oximetry 06/29/16 06/29/16 06/29/16 04:01 05:00 06:00 Temperature Pulse Rate 71 68 64 Pulse Rate [ From Monitor] Respiratory 10 L 11 L 11 L Rate Blood Pressure 163/88 166/104 157/100 O2 Sat by Pulse 97 95 100 Oximetry 06/29/16 06/29/16 06/29/16 06:21 07:00 07:35 Temperature 97.6 F Pulse Rate 70 68 Pulse Rate [ 77 From Monitor] Respiratory 14 12 Rate Blood Pressure 157/100 160/102 O2 Sat by Pulse 99 100 Oximetry 06/29/16 06/29/16 06/29/16 08:00 09:00 09:27 Temperature Pulse Rate 69 74 Pulse Rate [ From Monitor] Respiratory 11 L 16 Rate Blood Pressure 161/101 158/92 O2 Sat by Pulse 100 100 98 Oximetry 06/29/16 06/29/16 06/29/16 09:29 09:30 10:00 Temperature Pulse Rate 71 71 80 Pulse Rate [ From Monitor] Respiratory 11 L Rate Blood Pressure 158/92 158/92 105/77 O2 Sat by Pulse 99 Oximetry 06/29/16 11:00 Temperature Pulse Rate 65 Pulse Rate [ From Monitor] Respiratory 14 Rate Blood Pressure 152/94 O2 Sat by Pulse 95 Oximetry Constitutional: no acute distress Eyes: non-icteric ENT: oropharynx moist Neck: supple, no lymphadenopathy Effort: normal Ascultation: Bilateral: clear Cardiovascular: regular rate and rhythm Gastrointestinal: normoactive bowel sounds, soft, non-tender, non-distended Integumentary: normal Extremities: no cyanosis, no edema, pulses normal Neurologic: normal mental status, non-focal exam, pupils equal and round, motor strength normal and Psychiatric: mood appropriate, affect normal CBC and BMP: 06/29/16 04:58 06/29/16 04:58 ABG, PT/INR, D-dimer: PT/INR, D-dimer PT 12.7 Sec. (12.2-14.9) 06/28/16 01:20 INR 0.96 (0.87-1.13) 06/28/16 01:20 Abnormal lab findings: Abnormal Labs 06/28/16 06/29/16 06/29/16 23:31 04:58 04:58 Lymph % (Auto) 45.9 H Potassium 3.3 L POC Glucose 136 H
== END 2016-06-29 13:15 | disposition home health service (06) | DRG 100 ==
LOC: ED 01:13 → CC1 05:07
PROVIDERS: ADMIT Internal Medicine; ATTEND Internal Medicine
DX: G40.901 Epilepsy, unspecified, not intractable, with status epilepticus (principal); G93.41 Metabolic encephalopathy; I10 Essential (primary) hypertension; E11.9 Type 2 diabetes mellitus without complications; E78.5 Hyperlipidemia, unspecified; I16.0 Hypertensive urgency; Z86.73 Personal history of transient ischemic attack (TIA), and cerebral infarction without residual deficits
CPT/HCPCS: 36415; 70450; 80048; 82962; 84484; 85025; 85610; 85670; 85730; 93005; 93010; 94760; 96374; 96375; 96376; J1650; J1953; J2060; J2997; J7040; Q2009